=== PATIENT | male | born 1960 | race Caucasian/White ===

== ENCOUNTER 2020-02-16 10:34 | Day surgery (SDC) | payer OTHER, SELFPAY ==
[2020-02-10 14:05] VITALS: BMI 25.8
--- NOTE | 2020-02-10 14:19 | P.CONAN_ITS ---
Documented by User: Josie Pepper 02/10/20 14:21 HPI - Anesthesia Eval Consult details Narrative: 59yo M for Colonoscopy [facility] Past Medical History Medical History Hx of fracture of humerus Hx of supraventricular tachycardia Rosacea Family History Family History Father CVD (cardiovascular disease) Mother Lung cancer Hx of CABG Brother No problems noted. Brother No problems noted. Sister No problems noted. Surgical History Surgical History Hx of appendectomy Social History Social History Alcohol intake: current Alcohol intake frequency: a few times a week Alcohol type: beer Smoking Status: Former smoker Advance Directives: No Advance Directives Information Provided: No Advance Directives on File: No Meds Allergies Allergy/AdvReac Type Severity Reaction Status Date / Time No Known Allergies Allergy Verified 02/04/20 09:28 Exam Exam Date and Time: February 10, 2020 1419 Height,Weight and Vital Signs: Height 5 ft 7 in Weight 74.843 kg Narrative Narrative: EKG 10/2019: NSR Echo 12/2019: LVEF 60-65%, no obvious valve path, no RWMA Assessment and Plan Assessment Anesthesia Assessment: Chart Reviewed Documented by User: Radha Rod 02/16/20 12:14 [facility] Past Medical History Medical History Hx of fracture of humerus Hx of supraventricular tachycardia Rosacea Family History Family History Father CVD (cardiovascular disease) Mother Lung cancer Hx of CABG Brother No problems noted. Brother No problems noted. Sister No problems noted. Family history of problems with anesthesia: No Surgical History Surgical History Hx of appendectomy History of Problems with Anesthesia: No Social History Social History Alcohol intake: current Alcohol intake frequency: a few times a week Alcohol type: beer Smoking Status: Former smoker Advance Directives: No Advance Directives Information Provided: No Advance Directives on File: No Meds Allergies Allergy/AdvReac Type Severity Reaction Status Date / Time No Known Allergies Allergy Verified 02/04/20 09:28 Exam Height,Weight and Vital Signs: Vital Signs Temp Pulse Resp BP Pulse Ox 02/16/20 10:57 98.4 F 83 16 141/84 H 96 Episode of SVT while observing monitor- 140's -resolved spontaneously within seconds. Patient not aware. Airway Mallampati Class: II TM Dist: >3cm Neck ROM: Full Loose/Missing/Broken Teeth: Yes (Extractions) Heart: RRR Lungs: CTAB Assessment and Plan Assessment Anesthesia Assessment: Anesthesia Plan Discussed and Chart Reviewed Final Anesthetic Review NPO: Yes ASA Class: II Final Preanesthetic Review: No Changes in Pt Med Stat, Meds/Allgs Chart Reviewed and Anes Risks/Benef Reviewed Patient Risk: Low Procedure Risk: Low Anesthetic Plan Anesthetic Plan: MAC: Disposition: Standard PACU
[2020-02-16 10:57] VITALS: BP 141/84; PULSE 83; RESP 16; TEMP 36.9; O2SAT 96
[2020-02-16] MEDS: Lactated Ringers 1,000 ML 100 ML IVCONT (11:11)
--- NOTE | 2020-02-16 12:02 | MHC.SHP ---
Pre-Procedural Eval Section B Chief Complaint: Screening Details of Present Illness: Colon cancer screening Episode SVT in Early October--had been on Metoprolol--stopped, kept forgeting to take. Prev seen by Dr. Beaver Relevant Family History (Specify if Yes): No Relevant Social History: Tobacco Use (stopped 2013) Present Medications: None Medical History: Significant History (SVT) History of Previous Operations: No relevant previous surgery Allergies: Allergies Allergy/AdvReac Type Severity Reaction Status Date / Time No Known Allergies Allergy Verified 02/04/20 09:28 Review of Systems Sugical H&P ROS: Negative: Constitution, Respiratory and Gastrointestinal and Yes, Specify: Cardiovascular (new SVT--pt denies recurrence) and Integumentary (rosacea) Exam Surgical H&P Exam: Normal: HEENT, Normal: Heart, Normal: Lungs and Normal: Extremities Exam Comment: Episode on monitor of AP--140's Plan Diagnosis/Plan: Unchanged Patient has been examined and remains a candidate for the planned procedure YES
--- NOTE | 2020-02-16 13:16 | PM.PROC ---
Brief Operative Note Date of procedure: 02/16/20 Pre-op diagnosis: Colonoscopy Procedure: Colonoscopy Anesthesia: MAC (OSVALDO Pillai)
[2020-02-16 15:02] VITALS: BP 161/90; PULSE 72; RESP 14; TEMP 36.4; O2SAT 99
--- NOTE | 2020-02-16 15:04 | PM.PROC ---
Brief Operative Note Date of procedure: 02/16/20 Pre-op diagnosis: COLON CANCER SCREENING Post-op diagnosis: other (MULTIPLE POLYPS, DIVERTICULOSIS) Procedure: COLONOSCOPY WITH MULTIPLE POLYPECTOMIES,ORISE, EPINEPHRINE, ENDOMARKING IN 4 AREAS Anesthesia: MAC (OSVALDO MUNOZ) Surgeon: Cindi Irizarry Estimated blood loss (mL): 20 Pathology: other (CECAL, PROX TRANS, DTRANS COLON, SPLENIC FLEX) Condition: stable Disposition: PACU
[2020-02-16 15:17] VITALS: BP 146/91; PULSE 71; RESP 14; O2SAT 98
[2020-02-16 15:34] VITALS: BP 160/94; PULSE 61; RESP 16; TEMP 36.4; O2SAT 97
== END 2020-02-16 15:45 | disposition home or self-care (01) ==
PROVIDERS: PCP Internal Medicine; Visit Provider Internal Medicine Gastroenterology
PROC: 0DJD8ZZ Inspection of Lower Intestinal Tract, Via Natural or Artificial Opening Endoscopic (ICD-10-PCS; CPT 45378; principal; 2020-02-16 12:10)
DX: Z12.11 Encounter for screening for malignant neoplasm of colon (principal); D12.0 Benign neoplasm of cecum; D12.3 Benign neoplasm of transverse colon; K57.30 Diverticulosis of large intestine without perforation or abscess without bleeding; K64.8 Other hemorrhoids
CPT/HCPCS: 45380; 45381; 88305; J0171

== ENCOUNTER → 2020-03-07 10:13 | Outpatient (BNVA) | payer SELFPAY | PROVIDERS: PCP Internal Medicine; Referring Provider Internal Medicine; Visit Provider Internal Medicine Cardiovascular Disease | DX: I47.1 Supraventricular tachycardia (principal) | CPT/HCPCS: 99212 ==

== ENCOUNTER → 2020-03-14 08:22 | Outpatient (BNVA) | payer OTHER, SELFPAY | PROVIDERS: PCP Internal Medicine; Referring Provider Internal Medicine; Visit Provider Physician Assistant | DX: Z76.89 Persons encountering health services in other specified circumstances (principal) ==

== ENCOUNTER 2020-05-18 10:30 | Day surgery (SDC) | payer OTHER, SELFPAY ==
--- NOTE | 2020-05-17 09:31 | HO.ANESPROP2 ---
Documented by User: Josie Pepper 05/17/20 09:35 HPI - Anesthesia Eval Consult details Narrative: 60yo M for Colonoscopy [facility] Active Problems Active Problems: All Active Problems (Updated 05/12/20 @ 12:21 by Anne Toscano) Vertigo (Acute) SVT (supraventricular tachycardia) (Acute) Colon adenomas (Acute) Rosacea (Acute) Past Medical History Medical History Hx of basal cell carcinoma Hx of fracture of humerus Hx of heartburn Hx of supraventricular tachycardia Rosacea Family History Family History Father CVD (cardiovascular disease) Mother Lung cancer Hx of CABG Brother No problems noted. Brother No problems noted. Sister No problems noted. Surgical History Surgical History Hx of appendectomy Hx of colonoscopy Social History Social History Alcohol intake: current Alcohol intake frequency: a few times a week Alcohol type: beer Smoking Status: Current every day smoker Tobacco Type: E-Cigarette Use of substances other than those prescribed or required for medical reasons: No Have you been hit, kicked, punched, or otherwise hurt by someone within the past year? If so, by whom?: No Advance Directives: No Advance Directives Information Provided: Yes Meds Allergies Allergy/AdvReac Type Severity Reaction Status Date / Time No Known Allergies Allergy Verified 05/12/20 12:24 Home Medications Medication Instructions Recorded Confirmed Last Taken Type bisacodyl 5 mg tablet,delayed 20 mg PO ONCE PRN 02/24/20 03/14/20 Unknown History release flu vacc [id number] 6mos up(PF) ml IM 02/24/20 03/14/20 Unknown History ibuprofen 800 mg tablet mg PO 02/24/20 03/14/20 Unknown History peg 3350-electrolytes 236 ml PO DIRECTED 02/24/20 03/14/20 Unknown History gram-22.74 gram-6.74 gram-5.86 gram solution Exam Exam Date and Time: May 17, 2020 0931 Assessment and Plan Assessment Anesthesia Assessment: Chart Reviewed Documented by User: Radha Rod 05/18/20 12:16 [facility] Past Medical History Medical History Hx of basal cell carcinoma Hx of fracture of humerus Hx of heartburn Hx of supraventricular tachycardia Rosacea Family History Family History Father CVD (cardiovascular disease) Mother Lung cancer Hx of CABG Brother No problems noted. Brother No problems noted. Sister No problems noted. Family history of problems with anesthesia: No Surgical History Surgical History Hx of appendectomy Hx of colonoscopy History of Problems with Anesthesia: No Social History Social History Alcohol intake: current Alcohol intake frequency: a few times a week Alcohol type: beer Smoking Status: Current every day smoker Tobacco Type: E-Cigarette Use of substances other than those prescribed or required for medical reasons: No Have you been hit, kicked, punched, or otherwise hurt by someone within the past year? If so, by whom?: No Advance Directives: No Advance Directives Information Provided: Yes Meds Allergies Allergy/AdvReac Type Severity Reaction Status Date / Time No Known Allergies Allergy Verified 05/12/20 12:24 Home Medications Medication Instructions Recorded Confirmed Last Taken Type bisacodyl 5 mg tablet,delayed 20 mg PO ONCE PRN 02/24/20 03/14/20 Unknown History release flu vacc [id number] 6mos up(PF) ml IM 02/24/20 03/14/20 Unknown History ibuprofen 800 mg tablet mg PO 02/24/20 03/14/20 Unknown History peg 3350-electrolytes 236 ml PO DIRECTED 02/24/20 03/14/20 Unknown History gram-22.74 gram-6.74 gram-5.86 gram solution Exam Height,Weight and Vital Signs: Vital Signs Temp Pulse Resp BP Pulse Ox 05/18/20 10:45 97.0 F 82 18 125/81 98 Airway Mallampati Class: II TM Dist: >3cm Neck ROM: Full Loose/Missing/Broken Teeth: Yes (Missing-extractions) Heart: RRR Lungs: CTAB Assessment and Plan Assessment Anesthesia Assessment: Anesthesia Plan Discussed and Chart Reviewed Final Anesthetic Review NPO: Yes ASA Class: II Final Preanesthetic Review: No Changes in Pt Med Stat, Meds/Allgs Chart Reviewed, Consent Obtained/Reviewed and Anes Risks/Benef Reviewed Patient Risk: Low Procedure Risk: Low Assessment/Block/Sedation in SS: Assess/Block/Sedation-SS Anesthetic Plan Anesthetic Plan: MAC: Disposition: Standard PACU
[2020-05-18 10:45] VITALS: BP 125/81; PULSE 82; RESP 18; TEMP 36.1; O2SAT 98; BMI 24.3
[2020-05-18] MEDS: Lactated Ringers 1,000 ML 100 ML IVCONT (11:21)
--- NOTE | 2020-05-18 11:59 | MHC.SHP ---
Pre-Procedural Eval Section B Chief Complaint: benign neoplasm of colon Relevant Family History (Specify if Yes): No Relevant Social History: Tobacco Use Present Medications: see Short Stay Collaborative assessment Medical History: Significant History (Vertigo, SVT (supraventricular tachycardia) Colon adenomas Rosacea) History of Previous Operations: Relevant previous surgery/procedure and date(s) (appendectomy) Allergies: Allergies Allergy/AdvReac Type Severity Reaction Status Date / Time No Known Allergies Allergy Verified 05/12/20 12:24 Review of Systems Sugical H&P ROS: Negative: Constitution, Cardiovascular, Respiratory, Neurological, Psychiatric, Hem-Onc, Allergic/Immunologic, Gastrointestinal, Genitourinary, Musculoskeletal, Integumentary, Endocrine and Eyes/Ears/Nose/Throat Exam Surgical H&P Exam: Normal: HEENT, Normal: Heart, Normal: Lungs, Normal: Extremities, Normal: Abdomen, Normal: Skin and Normal: Neurological Plan Diagnosis/Plan: Unchanged I have reviewed the history and physical and performed a pertinent physical examination on my patient. No changes have occurred unless specified.
--- NOTE | 2020-05-18 12:00 | PM.OP ---
Brief Operative Note Date of Service: 05/18/20 Pre-op diagnosis: colon screening Post-op diagnosis: same Procedure: see op note Surgeon: Michaela Rogers MD Anesthesia: MAC Estimated blood loss (mL): 0 Condition: stable Disposition: PACU
[2020-05-18 13:07] VITALS: BP 99/66; PULSE 73; RESP 14; O2SAT 98
--- NOTE | 2020-05-18 13:07 | W.PM.OPN ---
Operative Note Operative Note Date of Service: 05/18/20 Narrative: Operative Information Procedure Description: Colonoscopy no problems with MAC anesthesia COLONOSCOPY Instrument: Olympus variable stiffness pediatric scope 190L Colonoscopy Monitoring: Vital signs and clinical assessment, continuous EKG monitoring, Pulse oximetry, Carbon Dioxide monitoring and blood pressure monitoring were done throughout the procedure. Colon withdrawal time was 20 minutes. Procedure: The patient was placed in the left lateral decubitis position and pre-procedure medications were administered. After a digital rectal examination of the ano-rectum, the video colonoscope was inserted into the rectum and advanced through the colon to the cecum/TI. The colonoscope was slowly withdrawn in a retrograde panoramic fashion and the colon mucosa was carefully examined including a retroflexed view of the rectum. Findings and interventions are described below. Procedure Difficulty:easy Findings: Terminal Ileum-normal Cecum:normal Ascending Colon: normal Transverse Colon -normal Splenic flexure: Previously noted sited that was tatooed seen with 12-14 mm sessile polyp noted, raised with ORISE and then removed with hot snare, residual tissue removed with cold snare and then edges ablated using soft tip coag, x 2 clips used to partially close the defect. Descending Colon:normal Sigmoid Colon: scattered moderate diverticulosis noted, 4 sessile polyps noted, removed with cold snare Rectum: Retroflexion with small internal hemorrhoids, grade I Anorectum - normal Colon preparation: Fithian Bowel Preparation Scale Right colon; 2 Transverse colon: 3 Left colon; 2 (0 = Unprepared colon segment with mucosa not seen due to solid stool that cannot be cleared. 1 = Portion of mucosa of the colon segment seen, but other areas of the colon segment not well seen due to staining, residual stool and/or opaque liquid. 2 = Minor amount of residual staining, small fragments of stool and/or opaque liquid, but mucosa of colon segment seen well. 3 = Entire mucosa of colon segment seen well with no residual staining, small fragments of stool or opaque liquid) Impression and Post Procedure Diagnosis: polyps internal hemorrhoids diverticular disease Plan: High fiber diet leaflet Avoid straining at stool, epsom salts and sitz bath, anusol supps or cream prn Repeat Colonoscopy in 1-2 years or earlier if clinically indicated Above findings were reviewed with the patient and relevant handouts were provided if indicated.
[2020-05-18 13:22] VITALS: BP 121/76; PULSE 77; RESP 18; TEMP 37.2; O2SAT 96
== END 2020-05-18 14:00 | disposition home or self-care (01) ==
PROVIDERS: PCP Internal Medicine; Visit Provider Internal Medicine Gastroenterology
PROC: 0DJD8ZZ Inspection of Lower Intestinal Tract, Via Natural or Artificial Opening Endoscopic (ICD-10-PCS; CPT 45378; principal; 2020-05-18 12:10)
DX: Z12.11 Encounter for screening for malignant neoplasm of colon (principal); D12.3 Benign neoplasm of transverse colon; D12.5 Benign neoplasm of sigmoid colon; K57.30 Diverticulosis of large intestine without perforation or abscess without bleeding; K64.0 First degree hemorrhoids; Z86.010 Personal history of colon polyps
CPT/HCPCS: 45385; 45380; 45381; 88305

== ENCOUNTER → 2020-05-26 13:52 | Outpatient (BNVA) | payer OTHER, SELFPAY | PROVIDERS: PCP Internal Medicine; Visit Provider Physician Assistant ==

== ENCOUNTER → 2020-09-22 11:22 | Outpatient (BNVA) | payer OTHER, SELFPAY | PROVIDERS: PCP Internal Medicine; Referring Provider Internal Medicine; Visit Provider Internal Medicine Cardiovascular Disease | DX: I47.1 Supraventricular tachycardia (principal) | CPT/HCPCS: 99212 ==

== ENCOUNTER → 2020-11-21 15:38 | Outpatient (BNVA) | payer OTHER, SELFPAY | PROVIDERS: PCP Internal Medicine; Visit Provider Nurse Practitioner Family | DX: Z13.89 Encounter for screening for other disorder (principal) ==

== ENCOUNTER → 2020-11-29 15:17 | Outpatient (REF) | payer OTHER, SELFPAY ==
--- NOTE | 2020-11-29 15:21 | HM_ITS ---
Total monitoring time 13 days and 16 hours. Underlying rhythm is sinus. Minimum heart rate 47/ Min. Maximum 140/Min. Average 74/Min. No atrial fibrillation or flutter. No pauses or AV blocks. Rare supraventricular ectopy with a burden of 0.03%. Few short runs noted; longest 6 beats. Rare premature ventricular ectopy-burden 0.05%. One strip labeled as NSVT of 7 beats probably supraventricular based on morphology. No patient events. MTDD
== END ==
LOC: HO.CARD 15:17
PROVIDERS: PCP Internal Medicine; Visit Provider Nurse Practitioner Family
DX: I47.1 Supraventricular tachycardia (principal); R00.2 Palpitations
CPT/HCPCS: 93246

== ENCOUNTER → 2020-12-30 11:48 | Outpatient (BNVA) | payer OTHER, SELFPAY | PROVIDERS: PCP Internal Medicine; Referring Provider Internal Medicine; Visit Provider Nurse Practitioner Family | DX: I47.1 Supraventricular tachycardia (principal); R00.2 Palpitations | CPT/HCPCS: 93005; 99212 ==

== ENCOUNTER 2021-01-20 08:48 | Outpatient (REF) | payer OTHER, SELFPAY ==
[2021-01-20 11:29] LABS: MANUAL DIFF FLAG NO
[2021-01-20 11:39] LABS: Basophils Percent Auto 0.4 % (0-2); Eosinophils Percent Auto 0.2 % (0-4); Hematocrit 46.9 % (42-52); Hemoglobin 15.5 g/dl (14.0-18.0); Imm Gran Abs Auto 0.03 X10*3/uL (0.00-0.03); Imm Gran Pct Auto 0.4 % (0.0-0.4); Lymphocytes Absolute Auto 1.5 X10*3/uL (1.2-4.9); Lymphocytes Percent Auto 18.1 % (20-40); Mean Corpuscular Hemoglobin 29.8 pg (27.0-33.0); Monocytes Absolute Auto 0.6 X10*3/uL (0.1-1.2); Monocytes Percent Auto 7.4 % (2-11); Neutrophils Absolute Auto 6.1 X10*3/uL (2.0-8.3); Neutrophils Percent Auto 73.5 % (45-73); Platelet Count 316 X10*3/uL (160-400); Red Blood Count 5.21 X10*6/uL (4.60-5.80); Red Cell Distribution Width 12.5 % (11.0-16.0); White Blood Count 8.3 X10*3/uL (4.8-10.8)
[2021-01-20 11:58] LABS: Anion Gap 12 (12-20); Blood Urea Nitrogen 12 mg/dL (9-16); Calcium 9.7 mg/dL (8.4-10.2); Carbon Dioxide 28 mmol/L (22-29); Chloride 106 mmol/L (96-108); Estimated Glomerular Filt Rate > 60; Glucose Random 104 mg/dL (60-115); Potassium 5.2 mmol/L (3.3-5.1); Sodium 141 mmol/L (135-145)
== END 2021-01-20 08:49 | disposition home or self-care (01) ==
LOC: HO.HMGCLDS 08:48
PROVIDERS: PCP Internal Medicine; Visit Provider Internal Medicine Cardiovascular Disease
DX: I47.1 Supraventricular tachycardia (principal)
CPT/HCPCS: 36415; 80048; 85025; 85610

== ENCOUNTER → 2021-03-20 10:25 | Outpatient (BNVA) | payer OTHER, SELFPAY | PROVIDERS: PCP Internal Medicine; Referring Provider Internal Medicine; Visit Provider Internal Medicine Cardiovascular Disease | DX: I47.1 Supraventricular tachycardia (principal) | CPT/HCPCS: 99212 ==

== ENCOUNTER → 2021-08-01 10:44 | Outpatient (RCR) | payer OTHER, SELFPAY ==
--- NOTE | 2021-08-01 10:44 | MHC.OT.DC ---
[address] [phone] F: [phone] Occupational Therapy Discharge Note Provider: Octavio Burch MD Diagnosis: Left Shoulder pain Date of Surgery: Date of Evaluation: 01/13/20 Date of Discharge: Treatments to Date: 16 Cancellations to Date: 0 No Shows to Date: 0 Discharge Status: Discharge Summary: DEC PAIN 2/10 AND IMPROVED FUNCTION INC ROM AFTER TREATMENT Pt DEMOSTRATES POTENTIAL FOR CON'T SLOW IMPROVEMENT WITH HEP. ENCOURAGED TO INC FREQUENCY OF AGGRESSIVE ROM. REVIEWED HEP Electronically Signed By: JAMISON HOUSER OT, CHT, CLT Reviewed/agree with student documentation: N/A Therapist: Please Sign and return to therapist, thank you for your referral.
== END | disposition home or self-care (01) ==
LOC: HO.OT 01-06 10:50
PROVIDERS: PCP Internal Medicine; Visit Provider Internal Medicine
DX: S42.302A Unspecified fracture of shaft of humerus, left arm, initial encounter for closed fracture (principal)
CPT/HCPCS: 97035; 97110; 97140; 97530

== ENCOUNTER → 2022-04-16 11:32 | Outpatient (BNVA) | payer OTHER, SELFPAY | PROVIDERS: PCP Internal Medicine; Visit Provider Internal Medicine Cardiovascular Disease | DX: I47.1 Supraventricular tachycardia (principal) | CPT/HCPCS: 93005; 99212 ==

== ENCOUNTER 2022-04-20 08:14 | Outpatient (REF) | payer OTHER, SELFPAY ==
[2022-04-20 09:37] LABS: Cholesterol 172 mg/dL; HDL Cholesterol 43 mg/dL; LDL Cholesterol Calculated 110 mg/dl; Triglycerides 99 mg/dL
== END 2022-04-20 08:15 | disposition home or self-care (01) ==
LOC: HO.LAB 08:14
PROVIDERS: PCP Internal Medicine; Visit Provider Internal Medicine Cardiovascular Disease
DX: Z13.220 Encounter for screening for lipoid disorders (principal)
CPT/HCPCS: 36415; 80061

== ENCOUNTER 2022-07-24 08:21 | Outpatient (REF) | payer OTHER, SELFPAY ==
[2022-07-24 09:28] LABS: Alanine Aminotransferase 16 U/L (0-40); Albumin Level 4.2 g/dL (3.5-5.0); Alkaline Phosphatase 67 U/L (39-117); Aspartate Amino Transferase 16 U/L (5-37); Bilirubin Direct 0.2 mg/dL (0.0-0.5); Bilirubin Total 0.6 mg/dL (0.0-1.0); Cholesterol 127 mg/dL; HDL Cholesterol 43 mg/dL; LDL Cholesterol Calculated 74 mg/dl; Total Protein 7.1 g/dL (6.5-8.0); Triglycerides 51 mg/dL
== END 2022-07-24 08:22 | disposition home or self-care (01) ==
LOC: HO.LAB 08:21
PROVIDERS: PCP Internal Medicine; Visit Provider Internal Medicine Cardiovascular Disease
DX: E78.5 Hyperlipidemia, unspecified (principal)
CPT/HCPCS: 36415; 80061; 80076

== ENCOUNTER 2022-10-25 08:16 | Outpatient (AMB) | payer OTHER, SELFPAY ==
--- NOTE | 2022-10-25 08:26 | MHC.OFFWIV ---
Intake Vital Signs 10/25/22 08:29 BP 122/70 Blood Pressure Location Rt brachial Position Sitting Pulse 70 Pulse Source Pulse Oximeter Temp 97.4 F Temp Source Temporal Artery Scan Pulse Oximetry (%) 99 Oxygen Delivery Method Room Air Intake Visit Reasons: EP frequent urination (lobby) Intake Note: Patient here for frequent urination which has been happening for about 4-5 days. pt denies any pain when urinating, discharge. Patient Tobacco Use Status: Former Tobacco user Quit Date: 2013 Allergies No Known Allergies Allergy (Verified 10/25/22 08:29) Do you need a note to return to daycare/school/sports/work: No HPI HPI Comments History of Present Illness Details The patient presents to urgent care for evaluation of frequency of urination starting 3 days ago. He is questioning STI as he had oral sex last week. No other symptoms. Denies excessive thirst. Denies fever chills denies abdominal pain denies penile discharge PFSH Medical History Hx of basal cell carcinoma Hx of fracture of humerus Hx of heartburn Hx of supraventricular tachycardia Rosacea Surgical History Hx of appendectomy Hx of colonoscopy Family History Father CVD (cardiovascular disease) Mother Lung cancer Hx of CABG Brother No problems noted. Brother No problems noted. Sister No problems noted. Social History (Updated 04/16/22 @ 11:45 by JULIEN Chirinos) Household Members: None Alcohol intake: current Alcohol intake frequency: 3 or more drinks per day Alcohol type: beer Patient Tobacco Use Status: Former Tobacco user Quit Date: 2013 Years Smoked: 30 +/- e-Cigarette/Vaping Use: Currently Using Current occupational status: employed Current occupation: Computer work Review of Systems Const Denies headache(s) ENT Denies headache(s) GI Denies abdominal pain and Denies diarrhea Neuro Denies headache(s) Physical Exam Vital Signs: Last Vital Signs Temp 97.4 F 10/25/22 08:29 Pulse 70 10/25/22 08:29 BP 122/70 10/25/22 08:29 Pulse Ox 99 10/25/22 08:29 Oxygen Delivery Method Room Air 10/25/22 08:29 Const General: healthy appearing and no acute distress HEENT Head: Yes normal to inspection Resp Effort & Inspection: normal respiratory effort and able to speak in complete sentences GI Inspection: Yes normal to inspection Results AMB Urinalysis, Automated UA Leukoctes 0 Tonya/uL Last Edit by Al Nicole CCM on 10/25/22 09:06 UA Nitrite Negative Last Edit by Al Nicole [facility] on 10/25/22 09:06 UA Urobilinogen 0.2 mg/dL Last Edit by Al Nicole [facility] on 10/25/22 09:06 UA Protein 0 mg/dL Last Edit by Al Nicole [facility] on 10/25/22 09:06 UA pH 6.0 Last Edit by Al Nicole [facility] on 10/25/22 09:06 UA Blood 0 Robert/uL Last Edit by Al Nicole [facility] on 10/25/22 09:06 UA Specific [employer] 1.010 Last Edit by Al Nicole [facility] on 10/25/22 09:06 UA Ketone Last Edit by Al Nicole [facility] on 10/25/22 09:06 UA Bilirubin 0 mg/dL Last Edit by Al Nicole [facility] on 10/25/22 09:06 UA Glucose 0 mg/dL Last Edit by Al Nicole [facility] on 10/25/22 09:06 AMB Random Glucose (hemocue) AMB Random Glucose (hemocue) 118 mg/dL Last Edit by Al Nicole [facility] on 10/25/22 09:26 Results Reviewed Results Reviewed: Laboratory Last Values Urine pH (Auto) 6.0 10/25/22 09:04 Specific [employer] (Auto) 1.010 10/25/22 09:04 Urine Protein (Auto) 0 mg/dL 10/25/22 09:04 Glucose (UA)(Auto) 0 mg/dL 10/25/22 09:04 Urine Blood (Auto) 0 Robert/uL 10/25/22 09:04 Urine Nitrite (Auto) Negative 10/25/22 09:04 Urine Bilirubin (Auto) 0 mg/dL 10/25/22 09:04 Urine Urobilinogen (Auto) 0.2 mg/dL 10/25/22 09:04 Leukocyte Esterase (Auto) 0 Tonya/uL 10/25/22 09:04 Assessment & Plan Assessment & Plan (1) Urinary frequency: Code(s): R35.0 - Frequency of micturition Plan No evidence for UTI will send urine culture. Patient questioning STI will send for testing. Orders: Orders Urine Culture Today R30.0 - Dysuria CT NG by PCR Today Z20.2 - Contact with and (suspected) exposure to infections with a predominantly sexual mode of transmission HIV Ab/Ag Today Z20.2 - Contact with and (suspected) exposure to infections with a predominantly sexual mode of transmission Syphilis Screen Today Z20.2 - Contact with and (suspected) exposure to infections with a predominantly sexual mode of transmission AMB Urinalysis Automated Today Z13.9 - Encounter for screening, unspecified AMB Random Glucose (hemocue) Today Z13.9 - Encounter for screening, unspecified Coding Level of Care Code Est Pt Level 3 (94867) Diagnoses Urinary frequency R35.0
[2022-10-25 08:29] VITALS: BP 122/70; PULSE 70; TEMP 36.3; O2SAT 99
== END 2022-10-25 09:14 | disposition home or self-care (01) ==
PROVIDERS: PCP Internal Medicine; Visit Provider Emergency Medicine
DX: R35.0 Frequency of micturition (principal)
CPT/HCPCS: 81003; 82948; 99213

== ENCOUNTER 2022-10-25 09:12 | Outpatient (REF) | payer OTHER, SELFPAY | END 2022-10-25 09:13 | disposition home or self-care (01) | LOC: HO.LAB 09:12 | PROVIDERS: Visit Provider Emergency Medicine | DX: Z13.89 Encounter for screening for other disorder (principal) ==

== ENCOUNTER 2022-10-25 09:25 | Outpatient (REF) | payer OTHER, SELFPAY ==
[2022-10-25 15:17] LABS: CT PCR NOT DETECTED (Not Detect.); NG PCR NOT DETECTED (Not Detect.)
[2022-10-26 07:48] LABS: Syphilis Screen Nonreactive (Nonreactive)
[2022-10-26 08:29] LABS: HIV AB/AG Nonreactive (Nonreactive); HIV Num 1 0.04 S/CO (0.00-0.99)
== END 2022-10-25 09:26 | disposition home or self-care (01) ==
LOC: HO.HMGCLDS 09:25
PROVIDERS: PCP Internal Medicine; Visit Provider Emergency Medicine
DX: Z11.4 Encounter for screening for human immunodeficiency virus [HIV] (principal); Z20.2 Contact with and (suspected) exposure to infections with a predominantly sexual mode of transmission; R30.0 Dysuria
CPT/HCPCS: 0353U; 86780; 87086; 87389

== ENCOUNTER 2022-10-29 08:08 | Outpatient (AMB) | payer OTHER, SELFPAY ==
--- NOTE | 2022-10-29 08:16 | AM.OFFWIN_ITS ---
Intake Vital Signs 10/29/22 08:25 BP 114/80 Blood Pressure Location Rt brachial Position Sitting Pulse 68 Pulse Source Pulse Oximeter Temp 97.4 F Temp Source Temporal Artery Scan Pulse Oximetry (%) 98 Oxygen Delivery Method Room Air Intake Visit Reasons: EP ?UTI-Milky white Discharge (lobby) Patient Tobacco Use Status: Former Tobacco user Quit Date: 2013 Allergies No Known Allergies Allergy (Verified 10/29/22 09:11) Medication List - Last Reconciled 10/29/22 by Abe Kwon MD atorvastatin 20 mg PO BEDTIME 90 days metoprolol succinate ER 50 mg PO DAILY HPI EP ?UTI-Milky white Discharge (lobby) HPI Details 62-year-old male presents to the office for a sick visit. He was seen here last week to be tested for STI. The urine was negative for chlamydia and gonorrhea. The blood work was negative for syphilis and HIV. Patient reports that a day after his visit here, on massaging the penis, a milky white discharge was seen. The discharge has not reoccurred since. He now admits to have paid for oral sex a week ago. [facility] Medical History Hx of basal cell carcinoma Hx of fracture of humerus Hx of heartburn Hx of supraventricular tachycardia Rosacea Surgical History Hx of appendectomy Hx of colonoscopy Family History Father CVD (cardiovascular disease) Mother Lung cancer Hx of CABG Brother No problems noted. Brother No problems noted. Sister No problems noted. Social History (Updated 04/16/22 @ 11:45 by JULIEN Chirinos) Household Members: None Alcohol intake: current Alcohol intake frequency: 3 or more drinks per day Alc ohol type: beer Patient Tobacco Use Status: Former Tobacco user Quit Date: 2013 Years Smoked: 30 +/- e-Cigarette/Vaping Use: Currently Using Current occupational status: employed Current occupation: Computer work Physical Exam Vital Signs: Last Vital Signs Temp 97.4 F 10/29/22 08:25 Pulse 68 10/29/22 08:25 BP 114/80 10/29/22 08:25 Pulse Ox 98 10/29/22 08:25 Oxygen Delivery Method Room Air 10/29/22 08:25 Const General: cooperative and healthy appearing Nutritional Appearance: well nourished Limitations: no limitations HEENT Head: Yes normal to inspection Eyes General: appearance normal, both eyes and all related structures Neck Neck: Yes normal visual inspection Chest Chest palpation & inspection: normal palpation of entire chest wall Resp Effort & Inspection: normal respiratory effort Results AMB Urinalysis, Automated UA Leukoctes 0 Tonya/uL Last Edit by Al Nicole [facility] on 10/29/22 08:37 UA Nitrite Negative Last Edit by Al Nicole [facility] on 10/29/22 08:37 UA Urobilinogen 0.2 mg/dL Last Edit by Al Nicole [facility] on 10/29/22 08:37 UA Protein 0 mg/dL Last Edit by Al Nicole [facility] on 10/29/22 08:37 UA pH 5.5 Last Edit by Al Nicole [facility] on 10/29/22 08:37 UA Blood 0 Robert/uL Last Edit by Al Nicole [facility] on 10/29/22 08:37 UA Specific [place] 1.030 Last Edit by Al Nicole [facility] on 10/29/22 08:37 UA Ketone Negative Last Edit by Al Nicole [facility] on 10/29/22 08:37 UA Bilirubin 0 mg/dL Last Edit by Al Nicole [facility] on 10/29/22 08:37 UA Glucose 0 mg/dL Last Edit by Al Nicole [facility] on 10/29/22 08:37 Results Reviewed Results Reviewed: Laboratory Last Values Urine pH (Auto) 5.5 10/29/22 08:35 Specific [place] (Auto) 1.030 10/29/22 08:35 Urine Protein (Auto) 0 mg/dL 10/29/22 08:35 Glucose (UA)(Auto) 0 mg/dL 10/29/22 08:35 Urine Ketones (Auto) Negative 10/29/22 08:35 Urine Blood (Auto) 0 Robert/uL 10/29/22 08:35 Urine Nitrite (Auto) Negative 10/29/22 08:35 Urine Bilirubin (Auto) 0 mg/dL 10/29/22 08:35 Urine Urobilinogen (Auto) 0.2 mg/dL 10/29/22 08:35 Leukocyte Esterase (Auto) 0 Tonya/uL 10/29/22 08:35 Assessment & Plan Assessment & Plan (1) Urethritis: Code(s): N34.2 - Other urethritis Plan: Empiric treatment for sexually transmitted disease. Urine and blood work was discussed with patient. Orders: Orders AMB Urinalysis Automated Today Z13.9 - Encounter for screening, unspecified Coding Level of Care Code Est Pt Level 3 (27719) Diagnoses Urethritis N34.2
[2022-10-29 08:25] VITALS: BP 114/80; PULSE 68; TEMP 36.3; O2SAT 98
== END 2022-10-29 09:28 | disposition home or self-care (01) ==
PROVIDERS: PCP Internal Medicine; Visit Provider Internal Medicine
DX: N34.2 Other urethritis (principal); Z13.9 Encounter for screening, unspecified
CPT/HCPCS: 81003; 99213

== ENCOUNTER 2023-04-15 10:52 | Outpatient (AMB) | payer OTHER, SELFPAY ==
[2023-04-15 10:55] VITALS: BP 120/62; PULSE 77; BMI 26.8
--- NOTE | 2023-04-15 10:55 | MHC.OFFVIS ---
Intake Vital Signs 04/15/23 10:55 Height 5 ft 7 in Weight 170 lb 13.732 oz BMI 26.8 BP 120/62 Blood Pressure Location Lt brachial Position Sitting Pulse 77 Intake Visit Reasons: 1 year fu Intake Note: 1 yr f/up pt it feeling fine. 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 He had supraventricular tachycardia which was initially managed with metoprolol but he had recurrent episodes. He was referred to electrophysiology underwent ablation in January 2021. Since then he has been doing well. He has no further palpitations. Clinically stable and has been taking metoprolol and tolerating it. 04/15/2023: He returns for follow-up. He had repeat lipid test in June 2022 when total cholesterol was 127, triglycerides 51, LDL 74 and HDL 43. He is taking atorvastatin 20 mg daily. He is on Toprol-XL 50 mg daily. On follow-up he is doing well. No palpitations. No chest discomfort. Clinically stable [facility] Medical History Hx of basal cell carcinoma Hx of fracture of humerus Hx of heartburn Hx of supraventricular tachycardia Rosacea Surgical History Hx of colonoscopy Hx of appendectomy Family History Father CVD (cardiovascular disease) Mother Lung cancer Hx of CABG Brother No problems noted. Brother No problems noted. Sister No problems noted. 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[employer] Reports chills, Reports fatigue, Reports fever(s), Reports frequent falls, Reports weakness, Reports weight gain and Reports weight loss ENT Reports dizziness Card Reports chest pain, Reports leg edema, Reports lightheadedness, Reports palpitations, Reports dyspnea and Reports dyspnea on exertion Resp Reports cough, Reports dyspnea and Reports dyspnea on exertion GI Reports hematochezia Musc Reports abnormal gait, Reports muscle weakness, Reports numbness, Reports radiating pain into limb and Reports tingling Neuro Reports abnormal gait, Reports dizziness, Reports frequent falls, Reports numbness, Reports tingling and Reports weakness Endo Reports fatigue and Reports palpitations Physical Exam Vital Signs: BMI result Body Mass Index 26.8 GENERAL APPEARANCE: in no acute distress, pleasant. NECK: no carotid bruit, no jugular venous distention. SKIN: no suspicious lesions, warm and dry. HEART: no murmurs, regular rate and rhythm. LUNGS: clear to auscultation bilaterally. ABDOMEN: soft, nontender. EXTREMITIES: no edema. PERIPHERAL PULSES: equal. NEUROLOGIC: No gross deficits, AAO X 3 Office Procedures EKG Details: Sinus rhythm 77 beats per minute, normal axis, normal ECG, QTC 414 milliseconds. [id number], Complete Assessment & Plan Assessment & Plan (1) SVT (supraventricular tachycardia): Code(s): I47.1 - Supraventricular tachycardia Plan Pleasant 63 year gentleman is here for follow-up. He has history of SVT and he is status post ablation. He has been doing well. Continue metoprolol and atorvastatin. Last cholesterol levels were good and his LDL was 74 with a total cholesterol of 127. Triglycerides 51 and HDL 43. He has been doing well and has no symptoms on follow-up after a year. I have advised him to see us as needed from here onwards. Thank you for allowing me to participate in the care of your patient. Please feel free to contact me if you have any questions. Coding Level of Care Code Est Pt Level 3 (96740) Diagnoses SVT (supraventricular tachycardia) I47.1 CPT Codes EKG - CPT: 06445-[id number], Complete ([id number])
== END 2023-04-15 11:12 | disposition home or self-care (01) ==
PROVIDERS: Visit Provider Internal Medicine Cardiovascular Disease
DX: I47.19 Other supraventricular tachycardia (principal)
CPT/HCPCS: 93010; 99213

== ENCOUNTER → 2023-04-15 10:52 | Outpatient (BNVA) | payer OTHER, SELFPAY | PROVIDERS: Visit Provider Internal Medicine Cardiovascular Disease | DX: I47.10 Supraventricular tachycardia, unspecified (principal) | CPT/HCPCS: 93005; 99212 ==

== ENCOUNTER 2024-09-21 15:11 | Outpatient (AMB) | payer OTHER, SELFPAY ==
--- NOTE | 2024-09-21 15:20 | MHC.OFFVIS ---
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 He had supraventricular tachycardia which was initially managed with metoprolol but he had recurrent episodes. He was referred to electrophysiology underwent ablation in January 2021. Since then he has been doing well. He has no further palpitations. Clinically stable and has been taking metoprolol and tolerating it. 04/15/2023: He returns for follow-up. He had repeat lipid test in June 2022 when total cholesterol was 127, triglycerides 51, LDL 74 and HDL 43. He is taking atorvastatin 20 mg daily. He is on Toprol-XL 50 mg daily. On follow-up he is doing well. No palpitations. No chest discomfort. Clinically stable. 09/21/2024: He is here for follow-up. He has been doing fine. He does his day-to-day activities without any symptoms. In particular no chest discomfort shortness of breath. EKGs reviewed which is showing inferior Q-waves. [facility] Medical History Hx of basal cell carcinoma Hx of heartburn Hx of fracture of humerus Hx of supraventricular tachycardia Rosacea Surgical History Hx of colonoscopy Hx of appendectomy Family History Father CVD (cardiovascular disease) Mother Lung cancer Hx of CABG Brother No problems noted. Brother No problems noted. Sister No problems noted. 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[employer] Denies chills, Denies fatigue, Denies fever(s), Denies frequent falls, Denies weakness, Denies weight gain and Denies weight loss ENT Denies dizziness Card Denies chest pain, Denies leg edema, Denies lightheadedness, Denies palpitations, Denies dyspnea and Denies dyspnea on exertion Resp Denies cough, Denies dyspnea and Denies dyspnea on exertion GI Denies hematochezia Musc Denies abnormal gait, Denies muscle weakness, Denies numbness, Denies radiating pain into limb and Denies tingling Neuro Denies abnormal gait, Denies dizziness, Denies frequent falls, Denies numbness, Denies tingling and Denies weakness Endo Denies fatigue and Denies palpitations Physical Exam Vital Signs: Last Vital Signs Pulse 65 09/21/24 15:24 BP 130/64 09/21/24 15:24 BMI result Body Mass Index 26.2 GENERAL APPEARANCE: in no acute distress, pleasant. NECK: no carotid bruit, no jugular venous distention. SKIN: no suspicious lesions, warm and dry. HEART: no murmurs, regular rate and rhythm. LUNGS: clear to auscultation bilaterally. ABDOMEN: soft, nontender. EXTREMITIES: no edema. PERIPHERAL PULSES: equal. NEUROLOGIC: No gross deficits, AAO X 3 Office Procedures EKG Details: Sinus rhythm 65 beats per minute, normal axis, can not rule out inferior infarct, QTC 395 milliseconds. [id number], Complete Assessment & Plan Assessment & Plan (1) SVT (supraventricular tachycardia): Code(s): I47.1 - Supraventricular tachycardia Category: Medical Plan Pleasant 64 year gentleman with background history of supraventricular tachycardia status post ablation at this stage. He has done well since ablation and has not had any further palpitations and is clinically stable. Continue beta-blockers as before. He has hyperlipidemia and is currently taking atorvastatin 20 mg daily. His EKG has some abnormality and it is showing inferior Q-waves. Does not have any exertional symptoms at this stage. I have advised him to start taking baby aspirin. I have also advised him to report to us if he has any symptoms with activities. If he does report any symptoms then we will consider exercise stress testing. Thank you for allowing me to participate in the care of your patient. Please feel free to contact me if you have any questions. Medications: New aspirin (Adult Aspirin Regimen) 81 mg PO DAILY 90 tabs 3RF Coding Level of Care Code Est Pt Level 4 (84966) Diagnoses SVT (supraventricular tachycardia) I47.1 CPT Codes EKG - CPT: 33037-[id number], Complete ([id number])
[2024-09-21 15:24] VITALS: BP 130/64; PULSE 65; BMI 26.2
--- OUTSIDE RECORDS SUMMARY | 2024-09-21 16:44 | XMS_ITS | Clinical Summary ---
Author Organization [facility] Address [id number] [place] [id number] Care Team Providers Care Baker Test Name Role Phone Unavailable Primary Care Provider Unavailabl e Social History Tobacco Use Types Packs/Day Years Used Date Smoking Tobacco: Never Assessed Sex and Gender Information Value Date Recorded Sex Assigned at Not on file Legal Sex Male 11:35 AM EST Gender Identity Not on file Sexual Orientation Not on file Plan of Treatment Health Maintenance Due Date Last Done Comments DTaP,Tdap,and Td Vaccines (1 - Tdap) 1981 Pneumococcal Vaccine: 50+ Ye ars (1 of 1 - PCV) 2012 Zoster Vaccines (1 of 2) 2012 COVID-19 Vaccine ( - 2023-2 5 season) 2023 Influenza Vaccine (Season Ended) 2024 RSV Immunization Adult Patie nts (1 - 1-dose 75+ series) 2037 HIB Vaccines Aged Out No longer eligi ble based on patient's age to complete this topic HPV Vaccines Aged Out No longer eligi ble based on patient's age to complete this topic Hepatitis A Vaccines Aged Out No long er eligible based on patient's age to complete this topic Hepatitis B Vaccines Aged Out No long er eligible based on patient's age to complete this topic IPV Vaccines Aged Out No longer eligi ble based on patient's age to complete this topic MMR Vaccines Aged Out No longer eligi ble based on patient's age to complete this topic Meningococcal ACWY Vaccine Aged Out N o longer eligible based on patient's age to complete this topic Meningococcal B Vaccine Aged Out No l onger eligible based on patient's age to complete this topic Pneumococcal Vaccine: Pediat rics (0 to 5 Years) and At-Risk Patients (6 to 64 Years) Aged Out No longer eligible b ased on patient's age to complete this topic RSV Immunization Patients Un raza 20 months Aged Out No longer eligible b ased on patient's age to complete this topic Varicella Vaccines Aged Out No longer eligible based on patient's age to complete this topic
== END 2024-09-21 15:37 | disposition home or self-care (01) ==
LOC: HO.HCS 15:12
PROVIDERS: PCP Internal Medicine; Visit Provider Internal Medicine Cardiovascular Disease
DX: I47.10 Supraventricular tachycardia, unspecified (principal)
CPT/HCPCS: 93010; 99214

== ENCOUNTER → 2024-09-21 15:11 | Outpatient (BNVA) | payer OTHER, SELFPAY | PROVIDERS: PCP Internal Medicine; Visit Provider Internal Medicine Cardiovascular Disease | DX: I47.10 Supraventricular tachycardia, unspecified (principal); R94.31 Abnormal electrocardiogram [ECG] [EKG] | CPT/HCPCS: 93005; 99212 ==